=== PATIENT | male | born 1980 | race Caucasian/White ===

== ENCOUNTER 2022-09-25 16:34 | Emergency (ER) | payer OTHER ==
[~2022-09-25] VITALS: Ht 182.9 cm; Wt 118.2 kg
[2022-09-25 17:00] VITALS: BP 109/62
[2022-09-25 17:16] VITALS: BP 111/67
[2022-09-25 17:31] VITALS: BP 119/76
[2022-09-25 17:49] VITALS: BP 119/76
== END 2022-09-25 18:02 | disposition home or self-care (01) | DRG 563 ==
LOC: ED 16:34
PROC: 2W3JX1Z Immobilization of Right Finger using Splint (ICD-10-PCS; principal; 2022-09-25)
DX: S62.632A Displaced fracture of distal phalanx of right middle finger, initial encounter for closed fracture (principal); W23.0XXA Caught, crushed, jammed, or pinched between moving objects, initial encounter; R55 Syncope and collapse